=== PATIENT | male | born 1980 | race American Indian/Alaskan Native ===

== ENCOUNTER 2019-02-08 10:11 | Outpatient (CLI) | payer MEDICARE ==
--- NOTE | 2019-02-08 12:24 | Cat Scan Report ---
CT sinuses without contrast INDICATION : J34.9 UNSPECIFIED DISORDER OF NOSE AND NASAL SINUSES. TECHNIQUE: Axial imaging performed through the paranasal sinuses with reconstructed images also revi ewed. All CT scans at this location are performed using CT dose reduction for ALARA by means of auto mated exposure control. COMPARISON: None. FINDINGS: Mild leftward nasal septal deviation and approximately 4 mm leftward nasal septal spur as on axial series 3, image 88. Patent right ostiomeatal complex while slightly narrowed on the left. Mi ld right maxillary sinus mucosal thickening/air-fluid level posteriorly. Mild, patchy bilateral ethmo id air cell opacification as well. Mild left sphenoid sinus opacification inferiorly also noted. La r remainder imaged paranasal sinuses and mastoid air cells. Few radiopaque dental material creates st reak artifact. Intact bones. Normal eye globes. Normal imaged intracranial appearance. IMPRESSION: Mild right maxillary, bilateral ethmoid and left sphenoid sinusitis with few other findin gs, as above. Thank you for the opportunity to participate in this patient's care. Signer Name: Louie Valencia Signed: 02/08/2019 12:20 PM Workstation Name: [id number]
== END 2019-02-08 10:12 | disposition home or self-care (01) ==
LOC: EDSEX 10:11 → CT 10:11
PROVIDERS: ATTEND Otolaryngology
DX: J32.2 Chronic ethmoidal sinusitis (principal); J32.3 Chronic sphenoidal sinusitis
CPT/HCPCS: 70486